=== PATIENT | female | born 2000 | race African-American/Black ===

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

== ENCOUNTER 2018-03-09 12:06 | Emergency (ER) | payer OTHER | END 2018-03-09 13:39 | disposition home or self-care (01) | LOC: M ED 12:06 | DX: S93.401A Sprain of unspecified ligament of right ankle, initial encounter (principal); X50.1XXA Overexertion from prolonged static or awkward postures, initial encounter; Y92.410 Unspecified street and highway as the place of occurrence of the external cause; Y93.89 Activity, other specified; Y99.9 Unspecified external cause status; Z72.0 Tobacco use; Z79.3 Long term (current) use of hormonal contraceptives | CPT/HCPCS: 73610 ==

== ENCOUNTER 2018-03-20 11:34 | Emergency (ER) | payer OTHER ==
[2018-03-20 13:19] LABS: INFLUENZA A AMPLIFICATION NEGATIVE (NEGATIVE); INFLUENZA B AMPLIFICATION NEGATIVE (NEGATIVE)
== END 2018-03-20 13:39 | disposition home or self-care (01) ==
LOC: M ED 11:34
DX: J06.9 Acute upper respiratory infection, unspecified (principal); D64.9 Anemia, unspecified; Z79.3 Long term (current) use of hormonal contraceptives; Z77.098 Contact with and (suspected) exposure to other hazardous, chiefly nonmedicinal, chemicals
CPT/HCPCS: 87502